=== PATIENT | male | born 1985 | race Caucasian/White ===

== ENCOUNTER 2019-10-02 16:21 | Emergency (ER) | payer OTHER ==
[~2019-10-02] VITALS: Ht 180.3 cm; Wt 98.9 kg
[2019-10-02 16:41] VITALS: BP 150/93
--- NOTE | 2019-10-02 16:41 | NUR ---
PT BIB FAMILY C/O R SIDE FACIAL NUMBNESS AND DIZZINESS FOR 2 DAYS. PT IS AAOX4, NOT IN RESPIRATORY DISTRESS, HOOKED TO MONITOR, KEPT RESTED AND COMFORTABLE, WILL CONTINUE TO MONITOR.
--- NOTE | 2019-10-02 17:18 | NUR ---
AT BEDSIDE FOR EVAL.
--- NOTE | 2019-10-02 18:01 | NUR ---
Patient discharged to home in stable condition. Written and verbal after care instructions given. Patient verbalizes understanding of instruction.
== END 2019-10-02 18:02 | disposition home or self-care (01) ==
LOC: ER 16:22
DX: G51.0 Bell's palsy (principal)